=== PATIENT | male | born 1970 | race Caucasian/White ===

== ENCOUNTER 2024-03-08 11:08 | Emergency (ER) | payer BC, SELFPAY ==
--- NOTE | ~2024-03-08 | XR_ITS ---
EXAMINATION: XR HAND, LEFT CLINICAL INFORMATION: Chainsaw injury. Pain. COMPARISON: None available. TECHNIQUE: PA, lateral, and oblique views of the left hand. FINDINGS: The bones and soft tissues appear unremarkable. No fracture appreciated. Alignment is anatomic. Joint spaces appear maintained. No erosions or soft tissue calcifications 5. No radiopaque foreign body appreciated. XR/XR hand LT min 3V IMPRESSION: Unremarkable plain film examination of the left hand. Electronically signed by: Rai Asif MD 03/08/2024 01:24 PM EDT RP
[2024-03-08 11:38] VITALS: BP 179/56; PULSE 63; RESP 18; TEMP 36.4; O2SAT 96; BMI 28.0
--- NOTE | 2024-03-08 11:42 | ED.GENADULT ---
HPI - General Adult General Chief complaint: Wound/Laceration Stated complaint: Hand lac Time Seen by Provider: 03/08/24 15:50 Source: patient Mode of arrival: ambulatory Limitations: no limitations History of Present Illness ED Provider: Maury KILPATRICK HPI narrative: 53 yold male with no pmh presents to the ED left hand laceration caused by chainsaw. patient was doing some yard work with the son and and his glove got caught in the saw which cut his hand. Patient denies any other trauma. Patient states up-to-date with tetanus Related Data Previous Rx's ?Medication ?Instructions ?Recorded cephalexin 500 mg capsule 500 mg PO QID 7 days #28 caps 03/08/24 Allergies Allergy/AdvReac Type Severity Reaction Status Date / Time No Known Allergies Allergy Verified 03/08/24 11:38 Review of Systems Review of Systems: Left hand laceration Yes all other systems are reviewed and are negative [facility] Social History Social History Advance Directives: No Advance Directives Information Provided: Yes Do you have a plan to hurt others: No Plan Physical Exam ED Vital Signs: Vital Signs - 24 hr 03/08/24 11:38 03/08/24 15:58 03/08/24 16:50 Temperature 97.6 F 98.6 F Pulse Rate 63 57 54 Respiratory Rate 18 16 18 Blood Pressure 179/56 H 154/91 H 102/54 L Pulse Oximetry 96 99 97 Oxygen Delivery Method Room Air Room Air Room Air 03/08/24 17:41 Temperature 98.5 F Pulse Rate 68 Respiratory Rate 16 Blood Pressure 144/67 H Pulse Oximetry Oxygen Delivery Method Room Air BMI result Body Mass Index 28.0 Const General: cooperative, healthy appearing, comfortable, no acute distress, well developed, alert, awake and Physically active Orientation/consciousness: patient oriented x3 HENMT Head: Yes normal to inspection, Yes No palpable skull fracture present, Yes normocephalic and Yes atraumatic Eyes General: appearance normal, both eyes and all related structures Neck Neck: Yes normal visual inspection, Yes full ROM, Yes no lymphadenopathy, Yes no meningeal signs, Yes trachea midline, Yes supple, No anterior neck swelling and No tender Chest Chest palpation & inspection: normal inspection of the chest and normal palpation of entire chest wall Resp Effort & Inspection: normal respiratory effort and able to speak in complete sentences Cardio Jugular venous distension: no JVD Heart sounds: S1 normal heart sound present and S2 normal heart sound present GI Inspection: Yes normal to inspection Palpation (GI): Soft to palpation, not firm, nontender, no guarding and not rigid General: No CVA tenderness Back/Spine/Pelvis Back: No CVA tenderness and No back tenderness Skin Other: left hand laceration Neuro General: patient oriented x3, gait normal, tone normal, moves all extremities, Normal light touch and pain sensation, no meningeal signs, no focal motor deficits, CN's II-XI intact bilaterally and normal sensation to monofilament Extrem General: Yes normal to inspection, Yes full ROM and Yes capillary refill normal Hand/finger images: 1. Open wound bleeding controlled. Negative for bone exposure. Patient has complete range of motion of all fingers. Capillary refills intact. Negative for ecchymosis or deformity. Rest of extremity normal. Motor/neuro/vascular exam intact. Negative for signs of tendon/nerve injury. Course Course Course Narrative: RME, this is a rapid medical exam performed by Mehul Castelan please refer to primary provider for complete H&P- 53-year-old male presents for evaluation of a left hand laceration. He accidentally got it caught on a chain saw. He was wearing gloves. He has a 2 cm linear full-thickness laceration to the base of the left hand on the ulnar side.. No active bleeding Medications Administered Discontinued Medications Generic Name Dose Route Start Last Admin Trade Name Freq PRN Reason Stop Dose Admin Lidocaine HCl 5 ml 03/08/24 15:52 03/08/24 17:08 Lidocaine Hcl 1 % Mpf 5 Ml Vial INFILTRATI 03/08/24 15:53 5 ml ONCE ONE Administration Lidocaine HCl 5 ml 03/08/24 15:52 03/08/24 17:08 Lidocaine Hcl 1 % Mpf 5 Ml Vial INFILTRATI 03/08/24 15:53 5 ml ONCE ONE Administration Medical Decision Making Medical Decision Making MDM Narrative: 53 yold male presents ED for left hand laceration caused by a chain saw. Patient is up-to-date with tetanus. After injection of lidocaine patient presyncopal episode. Vital signs stable. POC 86. Patient states he syncopized when he sees blood. Left hand laceration cleaned with Betadine and sterile saline. 6 mL of lidocaine 1% injected into wound. Size 3 sutures used for repair. Seven sutures placed. Patient will be discharged with antibiotics due to being cut by a chain saw. Patient is educated worrisome signs return to the ED immediately. X-ray normal Differential Diagnosis Differential Diagnoses: The differential diagnosis associated with the presentation includes (Laceration.) Admission/Observation Consideration of admission/observation: Escalation of care including admission/observation considered Lab Data Labs: Lab Results 03/08/24 Range/Units 16:33 POC Glucose 86 (60-115) mg/dL Independent Interpretation I performed an independent interpretation of an: Plain X-Ray Radiology Impression Discussion of test interpretation with radiology: I have reviewed the radiologist's reading. Independent Historian Clinical information obtained from an independent historian. History obtained from or confirmed by: Other (Patient son) External Record Review External record reviewed: Other (Prior visit) Prescription Management I considered prescription management with: Pain Medication and Antibiotic Discharge Plan Discharge Clinical Impression: Laceration Patient Disposition: Home, Self-Care Instructions: Laceration (ED) Additional Instructions: Return to the ED immediately for any swelling, redness, pus discharge, foul odor, bluish discoloration, fever, chills, or any other concerning symptoms. Return to the ED in 10 days for suture removal. Recommend follow-up with primary care provider. You will be discharged with antibiotics to prevent infection. Keep area dry the 1st 48 hours. Prescriptions: New cephalexin 500 mg capsule 500 mg PO QID 7 Days Qty: 28 0RF Stand Alone Forms: Work/School Release Interventions: ED Discharge Assessment Last Done: 03/08/24 17:41 Discharge Date/Time: 03/08/24 17:42 Print Language: [place]
[2024-03-08 15:58] VITALS: BP 154/91; PULSE 57; RESP 16; TEMP 37; O2SAT 99
[2024-03-08 16:38] LABS: Glucose, Whole Blood 86 mg/dL (60-115)
--- NOTE | 2024-03-08 16:39 | PC.NURSE ---
Following lidocaine administration patient had an episode of self-described dizziness . looked a littel pale, HR in 50's and SaO2 91%. Improved iwth supine [place] position, deep breaths. Able to tolerate sitting and procedure on wound following this.
[2024-03-08 16:50] VITALS: BP 102/54; PULSE 54; RESP 18; O2SAT 97
[2024-03-08] MEDS: Lidocaine HCl 1 % MPF 5 ML VIAL INFILTRATI ×2 (17:08)
[2024-03-08 17:41] VITALS: BP 144/67; PULSE 68; RESP 16; TEMP 36.9
== END 2024-03-08 17:42 | disposition home or self-care (01) ==
PROVIDERS: Emergency Provider Internal Medicine; PCP Internal Medicine
DX: S61.412A Laceration without foreign body of left hand, initial encounter (principal); W29.3XXA Contact with powered garden and outdoor hand tools and machinery, initial encounter; R42 Dizziness and giddiness; Y93.H2 Activity, gardening and landscaping; Y92.017 Garden or yard in single-family (private) house as the place of occurrence of the external cause; Y99.9 Unspecified external cause status
CPT/HCPCS: 12001; 73130; 82947; 99283; 99284; J2003